=== PATIENT | female | born 1995 | race Hispanic/Latino ===

== ENCOUNTER 2021-12-26 22:59 | Inpatient (IN) | payer OTHER, SELFPAY ==
--- NOTE | 2021-12-26 22:59 | LDADM ---
This patient, Feli Ribera, was admitted to Labor/Delivery/Recovery 106 on 12/26/21 at 22:59. Plans for labor, pain management and were discussed with patient. Patient/family oriented to hospital policies and general routines including ID bracelet, bed and alarms, visiting hours, pain management, procedures, bathroom and other care routines, personal items, smoking policy, room service/diet and guest tray routines, infant security routines, and visiting hours. Patient/Family are encouraged to report perceived risks to care and to ask questions if they do not understand what they are told or what they should do. See OBIX for further documentation.
[2021-12-26 23:08] VITALS: TEMP 38.1
[2021-12-26 23:30] VITALS: BP 112/66; PULSE 128
[2021-12-26 23:46] VITALS: BP 101/71; PULSE 126
[2021-12-26 23:54] VITALS: TEMP 38.1
[2021-12-26] MEDS: LACTATED RINGERS 1,000 ML 125 ML IV CONT (23:55)
[2021-12-26] MEDS: AMPICILLIN 1 GM/NS 50 ML 1 GM/50 ML BAG IVPB (23:55)
[2021-12-27] VITALS (128 sets, daily range): BP systolic 76–130; BP diastolic 31–93; PULSE 79–188; RESP 15–18; TEMP 36.5–39.3; O2SAT 94–100; BMI 27.6
[2021-12-27 00:01] LABS: Basophils Percent Auto 0.4 % (0.2-1.2); Eosinophils Absolute Auto 0.1 K/mm3 (0-0.3); Eosinophils Percent Auto 1.1 % (0-4.4); Hematocrit 35.4 % (37.0-47.0); Hemoglobin 11.3 g/dL (12.0-15.0); Immature Granulocyte Absolute 0.06 K/mm3 (0.00-0.031); Immature Granulocyte Percent A 1.3 % (0-0.5); Immature Platelet Fraction Pct 15.1 % (0.9-11.2); Lymphocytes Absolute Auto 0.51 K/mm3 (0.9-3.2); Lymphocytes Percent Auto 11.1 % (18.3-44.2); Mean Corpuscular HGB Conc 31.9 g/dl (32-36); Mean Corpuscular Hemoglobin 26.5 pg (26-34); Mean Corpuscular Volume 83.1 fl (80-100); Mean Platelet Volume 12.3 fl (7.4-10.4); Monocytes Absolute Auto 0.5 K/mm3 (0.1-0.6); Monocytes Percent Auto 11.7 % (2.6-8.5); Neutrophils Absolute Auto 3.4 K/mm3 (1.3-6.7); Neutrophils Percent Auto 74.4 % (45.5-73.1); Nucleated Red Blood Cells Absolute Auto 0.1 K/mm3 (0.0-0.012); Nucleated Red Blood Cells Perc 1.3 % (0.0-0.2); Platelet Count Result 152 k/mm3 (150-375); Red Blood Count 4.26 M/mm3 (4.2-5.4); Red Cell Distribution Width 17.5 % (11.5-14.5); White Blood Count 4.6 K/mm3 (4.5-10.0)
[2021-12-27] MEDS: OXYTOCIN 30 UNITS/NS 500 ML 30 UNITS/500 ML BAG IV CONT (00:56)
[2021-12-27] MEDS: AMPICILLIN 1 GM/NS 50 ML 1 GM/50 ML BAG IVPB ×4 (03:50→23:56)
[2021-12-27] MEDS: LACTATED RINGERS 1,000 ML 125 ML IV CONT ×2 (03:50→04:51)
--- NOTE | 2021-12-27 04:12 | P.PNAN_ITS ---
Anes - Eval Pre Procedure Procedure: labor epidural Date/Time: 12/27/21 04:12 Pre Op Diagnosis: leaking Patient Data Age: 26 Gender: F Height: Weight: Last Vital Signs Temp 37.0 C 12/27/21 02:59 Pulse 117 H 12/27/21 04:05 Resp 16 12/27/21 01:30 BP 106/57 L 12/27/21 04:05 O2 Del Method Room Air 12/26/21 23:41 Allergies Allergy/AdvReac Type Severity Reaction Status Date / Time No Known Allergies Allergy Verified 12/09/21 12:29 Home Medications Medication Instructions Recorded Confirmed Type prenat.vits,jenifer,[id number] 1 tablet PO DAILY 12/09/21 12/27/21 History Laboratory Tests 12/26/21 12/26/21 12/26/21 23:53 23:53 23:53 WBC 4.6 K/mm3 K/mm3 (4.5-10.0) RBC 4.26 M/mm3 M/mm3 (4.2-5.4) Hgb 11.3 g/dL L g/dL (12.0-15.0) Hct 35.4 % L % (37.0-47.0) MCV 83.1 fl fl (80-100) MCH 26.5 pg pg (26-34) MCHC 31.9 g/dl L g/dl (32-36) RDW 17.5 % H % (11.5-14.5) Plt Count 152 k/mm3 k/mm3 (150-375) MPV 12.3 fl H fl (7.4-10.4) Immature Gran % (Auto) 1.3 % H % (0-0.5) Neut % (Auto) 74.4 % H % (45.5-73.1) Lymph % (Auto) 11.1 % L % (18.3-44.2) [place] % (Auto) 11.7 % H % (2.6-8.5) Eos % (Auto) 1.1 % % (0-4.4) Baso % (Auto) 0.4 % % (0.2-1.2) Lymph # (Auto) 0.51 K/mm3 L K/mm3 (0.9-3.2) [place] # (Auto) 0.5 K/mm3 K/mm3 (0.1-0.6) Eos # (Auto) 0.1 K/mm3 K/mm3 (0-0.3) Baso # (Auto) 0.0 K/mm3 K/mm3 (0.0-0.1) Abs Immat Gran (auto) 0.06 K/mm3 H K/mm3 (0.00-0.031) Absolute Neuts (auto) 3.4 K/mm3 K/mm3 (1.3-6.7) Absolute Nucleated RBC 0.1 K/mm3 H K/mm3 (0.0-0.012) Nucleated RBC % 1.3 % H % (0.0-0.2) % Immature Plt Fraction 15.1 % H % (0.9-11.2) RPR Pending Blood Type O Positive Antibody Screen Negative Patient hx anesthesia problems: none Family hx anesthesia problems: none Results Review: All pre-operative results and documents have been reviewed as part of the pre- operative evaluation. [facility]LY [facility] Family History Family History Other Patient denies significant medical history Social History Social History Smoking status: Never smoker Substance use: never Spiritual care concerns: No Exam Day of Procedure 12/27/21 04:12 Patient weight: overweight Heart: regular rate and rhythm Lungs: clear to auscultation Airway: Mallampati scale Neurological: alert and oriented
[2021-12-27] MEDS: SODIUM CHLORIDE 0.9% IV 300 ML 600 ML I-UTERINE (07:43)
--- NOTE | 2021-12-27 09:11 | WPDOBADMIT ---
Obstetrics - Admit Note Admission Note: record reviewed. No pertinent additions to the history and/or any subsequent changes in the physical findings that are not consistent with the expected course of the were found. Additions to the history and/or subsequent changes in the physical findings follow. Admitted in labor with SROM, meconium. Antibiotics started for low grade fever, possible prolonged rupture of membranes. baby tachy with minimal variability on admission, resolved with fluids and tylenol. pitocin prn.
--- NOTE | 2021-12-27 09:13 | PM.OBPRVD ---
OB - Delivery Note Procedure Delivery date: 12/27/21 Procedure: Delivery monitor: External FHT and External Uterine Route of delivery: Laceration Description: Perineal - 2nd Degree Delivery repair: vicryl Specimen: Yes Quantitative Blood Loss (ml): 550 Anesthesia type: Epidural Disposition: Floor Narrative: With adequate expulsive efforts by the mother, the baby's head was delivered OA. The baby's anterior shoulder was delivered under the pubic symphysis without difficulty. The posterior shoulder and the rest of the baby delivered without difficulty. The was placed on the mothers chest and suctioned and stimulated. The cord was clamped and cut after 30 seconds. Mother and baby both stable. Baby Date of : 12/27/21 Time of : 08:41 Weeks of gestation at delivery: 39 gender: Female Weight (pounds): 7 Weight (ounces): 3 presentation: vertex Placenta delivery description: Spontaneous Cord Vessel Description: 3 Vessels and Nuchal Cord (tight) score one minute: 8 score five minutes: 9
[2021-12-27 10:19] LABS: Estimated Glomerular Filt Rate > 60
[2021-12-27] MEDS: BENZOCAINE 20% AER SPR (*SP) 56 GM CAN 1 SPRAY TOPICAL (11:37)
[2021-12-27] MEDS: WITCH HAZEL 40 PADS 1 PAD TOPICAL (11:37)
--- NOTE | 2021-12-27 11:42 | OBPPTRN ---
Patient transferred to post room # 292 via wheelchair. Support person present. Oriented to unit, room, information board, rooming in, admission packet and security measures by using the stratus language line. Patient verbalizes understanding.
--- NOTE | 2021-12-27 11:50 | PC.NURSE ---
Welsh admission pack given and reviewed with pt.
[2021-12-27] MEDS: IBUPROFEN 600 MG TABLET PO (16:32)
[2021-12-27] MEDS: ACETAMINOPHEN 325 MG TABLET 650 MG PO (16:35)
[2021-12-27] MEDS: GENTAMICIN 60 MG/50 ML NS 60 MG/50 ML BAG 100 MG IVPB (19:11)
[2021-12-27] MEDS: CLINDAMYCIN 900 MG/D5W 50 ML 900 MG/50 ML PIGGYBACK 50 MG IVPB (19:12)
--- NOTE | 2021-12-27 19:38 | PC.NURSE ---
This RN to bedside to initiate IV antibiotics and assess patient. Estonian speaking virtual center receptionist service used throughout entire visit. 1905: This RN entered the room to begin assessing and teaching and patient was very fatigued, falling asleep several times, at this point while teaching this RN directed teaching toward patient's significant other to allow for patient to rest. 19:11: IV antibiotics started (Gent and Clinda) 8: Obtained patient's vital signs, patient's BP was 75/44, repeated and was 89/33. copy operator aware of pt high QBL (728), fevers today (100.6, 102.8,100.1), distended abdomen and low BP, to bedside and to call patient's provider for further instruction. 194: verbal orders received to initiate BP Q15 min, administer 2 L NS fluid boluses, obtain 2nd IV access, blood cultures x2 and CBC with differential (see VS flow sheet and MAR for further details) 19:45 patient placed on bedpan and unable to void at this time 1954: color paste mixing supervisor to bedside who obtained 2nd IV access and called lab to draw labs 2008: pt up to bedside commode, voided 900ml of pink tinged urine and back to bed with minimal assistance and no dizziness per patient 2010: Lab at bedside to obtain blood cultures and CBC with differential
[2021-12-27] MEDS: SODIUM CHLORIDE 0.9% IV 1,000 ML 999 ML ×2 (19:42→20:15)
[2021-12-27 20:23] LABS: Basophils Percent Auto 0.3 % (0.2-1.2); Eosinophils Percent Auto 0.2 % (0-4.4); Hematocrit 27.2 % (37.0-47.0); Hemoglobin 8.7 g/dL (12.0-15.0); Immature Granulocyte Absolute 0.05 K/mm3 (0.00-0.031); Immature Granulocyte Percent A 0.8 % (0-0.5); Lymphocytes Percent Auto 19.5 % (18.3-44.2); Mean Corpuscular Hemoglobin 26.7 pg (26-34); Mean Corpuscular Volume 83.4 fl (80-100); Mean Platelet Volume 12.1 fl (7.4-10.4); Monocytes Absolute Auto 0.8 K/mm3 (0.1-0.6); Monocytes Percent Auto 12.2 % (2.6-8.5); Neutrophils Absolute Auto 4.1 K/mm3 (1.3-6.7); Nucleated Red Blood Cells Perc 0.5 % (0.0-0.2); Platelet Count Result 131 k/mm3 (150-375); Red Blood Count 3.26 M/mm3 (4.2-5.4); Red Cell Distribution Width 17.6 % (11.5-14.5); White Blood Count 6.1 K/mm3 (4.5-10.0)
[2021-12-28] MEDS: CLINDAMYCIN 900 MG/D5W 50 ML 900 MG/50 ML PIGGYBACK 50 MG IVPB ×4 (01:08→18:33)
[2021-12-28] MEDS: GENTAMICIN 60 MG/50 ML NS 60 MG/50 ML BAG 100 MG IVPB ×3 (03:04→19:33)
[2021-12-28 04:00] VITALS: BP 107/58; PULSE 90; RESP 18; TEMP 37.1; O2SAT 97
[2021-12-28] MEDS: AMPICILLIN 1 GM/NS 50 ML 1 GM/50 ML BAG IVPB ×4 (04:09→16:00)
[2021-12-28 05:11] LABS: Basophils Percent Auto 0.4 % (0.2-1.2); Eosinophils Percent Auto 0.8 % (0-4.4); Hematocrit 25.2 % (37.0-47.0); Hemoglobin 8.1 g/dL (12.0-15.0); Immature Granulocyte Absolute 0.06 K/mm3 (0.00-0.031); Immature Granulocyte Percent A 1.1 % (0-0.5); Immature Platelet Fraction Pct 13.4 % (0.9-11.2); Lymphocytes Absolute Auto 1.48 K/mm3 (0.9-3.2); Lymphocytes Percent Auto 28.1 % (18.3-44.2); Mean Corpuscular HGB Conc 32.1 g/dl (32-36); Mean Corpuscular Hemoglobin 26.2 pg (26-34); Mean Corpuscular Volume 81.6 fl (80-100); Mean Platelet Volume 12.6 fl (7.4-10.4); Monocytes Absolute Auto 0.6 K/mm3 (0.1-0.6); Monocytes Percent Auto 12.2 % (2.6-8.5); Neutrophils Percent Auto 57.4 % (45.5-73.1); Nucleated Red Blood Cells Perc 0.6 % (0.0-0.2); Platelet Count Result 135 k/mm3 (150-375); Red Blood Count 3.09 M/mm3 (4.2-5.4); Red Cell Distribution Width 17.9 % (11.5-14.5); White Blood Count 5.3 K/mm3 (4.5-10.0)
[2021-12-28 05:18] LABS: Estimated Glomerular Filt Rate > 60
--- NOTE | 2021-12-28 07:05 | PM.OBPNVD ---
OB - PN: Subj Subjective Date/time seen: 12/28/21 07:05 Patient comments: no complaints and pain well controlled baby status: nursing well feeding status: breast and bottle feeding Narrative: Tmax 102.8 at 1625 yesterday, started triple abx. At 1935 had hypotension with BPs of 70s-80s/30s-40s. Blood cultures pending. Resolved after fluid bolus. This am pt denies DE PAZ/dizziness with ambulation, and feels fine. Afebrile since triples started. OB - PN: Obj Data Labs CBC & Chem 7: 12/28/21 04:17 12/28/21 04:17 Labs: Laboratory Results - last 24 hr 12/27/21 12/27/21 12/28/21 09:42 20:12 04:17 WBC 6.1 5.3 RBC 3.26 L 3.09 L Hgb 8.7 L 8.1 L Hct 27.2 L 25.2 L MCV 83.4 81.6 MCH 26.7 26.2 MCHC 32.0 32.1 RDW 17.6 H 17.9 H Plt Count 131 L 135 L MPV 12.1 H 12.6 H Immature Gran % (Auto) 0.8 H 1.1 H Neut % (Auto) 67.0 57.4 Lymph % (Auto) 19.5 28.1 [place] % (Auto) 12.2 H 12.2 H Eos % (Auto) 0.2 0.8 Baso % (Auto) 0.3 0.4 Lymph # (Auto) 1.20 1.48 [place] # (Auto) 0.8 H 0.6 Eos # (Auto) 0.0 0.0 Baso # (Auto) 0.0 0.0 Abs Immat Gran (auto) 0.05 H 0.06 H Absolute Neuts (auto) 4.1 3.0 Absolute Nucleated RBC 0.0 0.0 Nucleated RBC % 0.5 H 0.6 H % Immature Plt Fraction 13.4 H Creatinine 0.60 L Estim Creat Clear Calc Not Reportable Estimated GFR > 60 12/28/21 04:17 WBC RBC Hgb Hct MCV MCH MCHC RDW Plt Count MPV Immature Gran % (Auto) Neut % (Auto) Lymph % (Auto) [place] % (Auto) Eos % (Auto) Baso % (Auto) Lymph # (Auto) [place] # (Auto) Eos # (Auto) Baso # (Auto) Abs Immat Gran (auto) Absolute Neuts (auto) Absolute Nucleated RBC Nucleated RBC % % Immature Plt Fraction Creatinine 0.50 L Estim Creat Clear Calc Not Reportable Estimated GFR > 60 OB - PN A/P Assessment and Plan (1) Chorioamnionitis, delivered, current hospitalization: Code(s): O41.1290 - Chorioamnionitis, unspecified trimester, not applicable or unspecified Status: Acute (2) Anemia due to blood loss, acute: Code(s): D62 - Acute posthemorrhagic anemia Status: Acute (3) , delivered: Code(s): O80 - Encounter for full-term uncomplicated delivery Status: Acute Plan day: 1 Plan: routine care Comments: Continue amp/gent/clinda until 24 hours afebrile. may DC one IV blood cultures pending asymptomatic from anemia now that volume repleted. IV iron today. does not need blood transfusion as of now. Time Spent With Patient Time: Total time spent is greater than 50% in coordination of care (as documented) at patient's floor/unit and/or counseling patient: Time with patient: less than 15 minutes Exam Narrative: NAD, A and O x3 abdomen soft, nontender, fundus firm below the umbilicus Extremities nontender, 1+ edema
--- NOTE | 2021-12-28 07:12 | WPDANLDPN2 ---
Anes-Prog Note L&D Date/Time: 12/28/21 07:12 Comfortable throughout: labor and delivery Neuraxial method: epidural Epidural/Spinal procedure site: clean & non-tender Neuro status: Neuro function grossly intact. Cardiovascular status: normal Respiratory status: normal Airway patency: baseline Mental status: baseline Post-Op hydration status: normal Vital Signs: Last Vital Signs Temp 37.1 C 12/28/21 04:00 Pulse 90 12/28/21 04:00 Resp 18 12/28/21 04:00 BP 107/58 L 12/28/21 04:00 Pulse Ox 97 12/28/21 04:00 O2 Del Method Room Air 12/28/21 04:00 Pain score (VAS): 03/16 I/O: Intake & Output 12/27/21 12/27/21 12/28/21 15:59 23:59 07:59 Intake Total 1651.25 390 200 Output Total 178 900 Balance 1473.25 -510 200 Post-procedural complaints: none Patient feedback: Patient satisfied with anesthetic care.
[2021-12-28 07:15] VITALS: BP 109/57; PULSE 73; RESP 16; TEMP 36.6; O2SAT 97
[2021-12-28 07:29] LABS: Rapid Plasma Reagin Non-Reactive (NonReactive)
[2021-12-28] MEDS: MULTIVIT/MIN/PREN/FOL AC/IRON TABLET 1 TAB PO (08:01)
[2021-12-28] MEDS: DOCUSATE SODIUM 100 MG CAPSULE PO ×2 (08:01→16:01)
[2021-12-28] MEDS: IRON SUCROSE COMPLEX 200 MG in SODIUM CHLORIDE 0.9% IV 50 ML 120 MG IVPB (08:36)
[2021-12-28 11:10] VITALS: BP 99/53; PULSE 86; RESP 16; TEMP 36.5; O2SAT 97
--- NOTE | 2021-12-28 15:35 | PC.NURSE ---
8184 - Primary RN states now is not a good time to visit the patient. is being bottle fed by primary RN at the desk. [phone] - Slovenian speaking Primary RN assisted with introduction and a plan to assist with the next feeding. [phone] #[phone] [employer] sports assistant online for assistance. Mother led the conversation with her experience feeding her so far. Mother works well with her infant with encouragement and education. Encouraged understanding of the benefits of skin to skin (unwrapping infant and placing vertically on her chest), responsive feeding and how to watch for early feeding signs, frequency of feeding on demand about every 8-12 times in 24 hours (every 2-3 hours), milk production, duration of feeding, signs of adequate intake/output and how to record on the feeding sheet. Reviewed positioning and ear, shoulder, hip alignment, supporting the breast, asymmetrical latch (off-center), and leading with the chin with a big open side gape. latched optimally to the right breast in cross cradle position. Education given to mother of how to visualize suck/swallow ratios and drinking at the breast. was able to maintain latch without discomfort to mother. Nipple care reviewed with optimal latch and good positioning. Demonstrated to mother how to detach infant if there is nipple pain. placed skin to skin with mother and offered the left breast using football positioning. Several attempts made to achieve an optimal latch to the left breast. Resources used to facilitate learning were used with the tool and mom and baby guide. Mother voiced understanding of responsive feedings, stimulating with skin to skin, hand expressed colostrum, massage touch, talking to to encourage if it has been 2 -3 hours since the start of the last , to call if does not wake to latch, or there is discomfort with . Reported to the primary RN that educational information will be more valuable with reinforcement.
[2021-12-28 16:00] VITALS: BP 100/58; PULSE 73; RESP 16; TEMP 36.5; O2SAT 98
[2021-12-28] MEDS: POLYSACCHARIDE IRON COMPLEX 150 MG CAPSULE PO (16:01)
[2021-12-28] MEDS: IBUPROFEN 600 MG TABLET PO (16:01)
[2021-12-28 18:30] LABS: Gentamicin Trough 0.7 ug/mL (<1.0)
[2021-12-28 19:02] VITALS: BP 101/54; PULSE 85; RESP 16; TEMP 36.9
--- NOTE | 2021-12-29 07:32 | PM.OBPNVD ---
OB - PN: Subj Subjective Date/time seen: 12/29/21 07:32 Patient comments: no complaints baby status: doing well and nursing well Narrative: Afebrile since abx stopped. No sx anemia, feels well. Just a little sore. Ready for DC. OB - PN: Obj Data Labs CBC & Chem 7: 12/28/21 04:17 12/28/21 04:17 Labs: Laboratory Results - last 24 hr 12/28/21 17:56 Gentamicin Trough 0.7 OB - PN A/P Plan day: 2 Plan: routine care and discharge home Comments: DC IV after IV iron this am May DC home later today- after 1500 if remains afebrile DC precautions given. Time Spent With Patient Time: Total time spent is greater than 50% in coordination of care (as documented) at patient's floor/unit and/or counseling patient: Time with patient: less than 15 minutes Exam Narrative: NAD abdomen soft, nontender, fundus firm below the umbilicus Extremities nontender, 1+ edema
--- NOTE | 2021-12-29 07:37 | P.DS_ITS ---
DS: Admitting Diagnosis Discharge Date 12/29/21 Admitting Diagnosis term IUP, labor, prolonged ROM DS: Discharge Diagnosis Discharge Diagnosis (1) , delivered: Code(s): O80 - Encounter for full-term uncomplicated delivery Status: Acute (2) Anemia due to blood loss, acute: Code(s): D62 - Acute posthemorrhagic anemia Status: Acute (3) Chorioamnionitis, delivered, current hospitalization: Code(s): O41.1290 - Chorioamnionitis, unspecified trimester, not applicable or unspecified Status: Acute OB - DS: Summary Hospital Course Hospital Course: Feli was admitted in labor at term. She had had ruptured membranes at home for a prolonged period of time and ampicillin was started on admission. She pr oceeded to have an uncomplicated delivery. She became febrile after delivery and triple antibiotics were started and continued for 24 hours. She had a period of hypotension, and there was a concern for sepsis. However blood cultures were negative, and she was significantly anemic and it was likely just hypovolemia and it resolved with IV fluids. She did not require a blood transfusion, as after IV fluids she was asymptomatic. The remainder of her course was uncomplicated and she was discharged home on day 2. OB Procedures : Ultrasound OB Procedures Intrapartum: Spontaneous Vag Delivery OB Procedures: : Antibiotics Peripartum Data Infant Delivery Method: Natural Vaginal Laceration Description: Perineal - 2nd Degree complications: pelvic infection Status at Discharge Functional status at discharge: independent ambulation Time Spent with Patient Time attestation: Total time spent providing and/or coordinating discharge services: Exam Narrative: NAD abdomen soft, appropriately tender Ext non tender, 1+ edema DS: Data Data Completed and Pending Pending studies at discharge: Pending at discharge 12/27/21 08:49 Surgical [PTH] Routine Labs on day of discharge: Labs from last 24 hours 12/28/21 17:56 Gentamicin Trough 0.7 Preliminary micro results at discharge 12/27/21 20:12 Blood Culture - Preliminary Blood 12/27/21 20:12 Blood Culture - Preliminary Blood 12/27/21 09:41 Anaerobic Culture - Preliminary Placenta Maternal 12/27/21 09:45 Anaerobic Culture - Preliminary Placenta Discharge Plan Discharge Attending physician on discharge: Isi Arriaga Discharging Clinician: Isi Arriaga Anticipated Discharge Date/Time: 12/29/21 15:00 Patient Disposition: Home, Self-Care Activity: pelvic rest Diet: regular Discharge Instructions: Return to ED if temp greater than 101 Patient Instructions: Antibiotic Form Patient Language: Gibraltarian Stand Alone Forms: General Discharge Information Follow-up/Referrals: Isi Arriaga MD [Physician] - 4 Weeks Discharge Medications: Continued #2 Tablet 1 tablet PO DAILY Date of admission: 12/26/21 22:59 Primary Care Provider: UNKNOWN,DOCTOR Admitting Provider: Kelvin Hernandez Attending physician on admission: Kelvin Hernandez Condition: Stable
[2021-12-29 07:45] VITALS: BP 95/57; PULSE 58; RESP 16; TEMP 36.7; O2SAT 100
[2021-12-29] MEDS: DOCUSATE SODIUM 100 MG CAPSULE PO (09:56)
[2021-12-29] MEDS: MULTIVIT/MIN/PREN/FOL AC/IRON TABLET 1 TAB PO (09:56)
[2021-12-29] MEDS: POLYSACCHARIDE IRON COMPLEX 150 MG CAPSULE PO (09:56)
[2021-12-29] MEDS: IBUPROFEN 600 MG TABLET PO (09:56)
[2021-12-29] MEDS: IRON SUCROSE COMPLEX 200 MG in SODIUM CHLORIDE 0.9% IV 50 ML 120 MG IVPB (10:17)
--- NOTE | 2021-12-29 11:28 | PC.NURSE ---
0956 used [employer] to translate for AM assessment and meds.
--- NOTE | 2021-12-29 15:45 | PC.NURSE ---
[phone] Wildlife Control Agent #[id number] Alexa assisted with education. Mother led the conversation with her experience and plan to feed her so far and her ability to independently latch optimally without discomfort. Mother will supplement as she desires. Reminded parents to use good handwashing technique to prevent infection. Mother is feeding appropriately for growth of infant and understands stimulating infant to eat if needed. has had appropriate feedings in the last 24 hours meets the outcomes for weight, output and jaundice at this time. Mother states she is confident to continue effectively , will pump if takes a bottle or doesn't latch, mother is comfortable with supplementing her infant at home with formula, when to call for assistance and denies any additional assistance or education at this time. Reinforced understanding of milk production, transition of milk, signs of adequate intake, prevention/relief of engorgement, responsive after visualizing feeding cues, the different methods of stimulating infant to breastfeed 2-3 hours after the start of the last feeding, community resources, medication information reviewed per [facility] and when to call a provider using the resource of the mom and baby guide/[facility] website. Mother voiced understanding of the education shared with the assistance of the auto dismantler Alexa. Reported to the primary RN.
--- NOTE | 2021-12-29 18:48 | PC.NURSE ---
1630 Patient viewed the Ukrainian discharge video Mother & Baby Care, The First Two Weeks . Patient was given the opportunity and encouraged to ask questions. Patient verbalized understanding of information shared and has been given the mother/baby guide for home reference.
[2021-12-31 11:08] VITALS: BP 99/54; PULSE 80; RESP 20; TEMP 36.7; O2SAT 100
== END 2021-12-29 17:39 | disposition home or self-care (01) | DRG 560 ==
LOC: ANHLDR 23:22 → ANHOB2 12-29 07:37 → ANHLDR 12-31 08:54 → ANHOB2 12-31 08:54
PROVIDERS: Admitting Provider Obstetrics & Gynecology; Visit Provider Obstetrics & Gynecology
DX: O42.92 Full-term premature rupture of membranes, unspecified as to length of time between rupture and onset of labor (principal); I95.9 Hypotension, unspecified; O41.1230 Chorioamnionitis, third trimester, not applicable or unspecified; O99.42 Diseases of the circulatory system complicating childbirth; Z37.0 Single live birth; Z3A.39 39 weeks gestation of pregnancy; O99.03 Anemia complicating the puerperium; D64.89 Other specified anemias; O77.0 Labor and delivery complicated by meconium in amniotic fluid; O69.1XX0 Labor and delivery complicated by cord around neck, with compression, not applicable or unspecified
CPT/HCPCS: 36415; 80170; 82565; 85025; 85055; 86592; 86850; 86900; 86901; 87040; 87070; 87075; 87205; 88307; A9270; J0131; J0290; J1580; J1756; J2590; J2795; J7030; J7050; J7120